=== PATIENT | female | born 1935 | race Two or more races ===

== ENCOUNTER 2023-12-01 16:58 | Emergency (ER) | payer OTHER ==
[~2023-12-01] VITALS: Ht 162.6 cm; Wt 69.9 kg
[2023-12-01] MEDS: IV NORMAL SALINE 500 ML IV ONE (02:00)
[2023-12-01] MEDS ORDERED: SIMVASTATIN (18:50)
[2023-12-01] MEDS ORDERED: LOSARTAN (18:50)
[2023-12-01] MEDS ORDERED: NAMENDA (18:50)
[2023-12-01 19:10] LABS: BASOPHILS # (AUTO) 0.2 K/UL (0.0-0.2); BASOPHILS % (AUTO) 2.5 % (0.0-2.0); EOSINOPHILS # (AUTO) 0.1 K/uL (0.0-0.7); EOSINOPHILS % (AUTO) 1.5 % (0.0-7.0); HEMATOCRIT 39.9 % (31.2-41.9); HEMOGLOBIN 13.1 g/dL (10.9-14.3); LYMPHOCYTES # (AUTO) 0.4 K/uL (0.8-4.8); LYMPHOCYTES % (AUTO) 6.9 % (20.5-51.5); MEAN CORPUSCULAR HEMOGLOBIN 28.7 uug (24.7-32.8); MEAN CORPUSCULAR HGB CONC 33 g/dL (32.3-35.6); MEAN CORPUSCULAR VOLUME 87.5 fL (75.5-95.3); MONOCYTES # (AUTO) 0.3 K/uL (0.1-1.30); MONOCYTES % (AUTO) 4.8 % (0.0-11.0); NEUTROPHILS # (AUTO) 5.3 K/uL (1.8-8.9); NEUTROPHILS % (AUTO) 84.3 % (38.5-71.5); PLATELET COUNT (AUTO) 122 K/uL (179-408); RED BLOOD CELL COUNT(AUTO) 4.56 MIL/uL (3.63-4.92); RED CELL DISTRIBUTION WIDTH 14.2 % (12.3-17.7); WHITE BLOOD COUNT (AUTO) 6.3 K/uL (3.8-11.8)
[2023-12-01 19:32] LABS: DIFFERENTIAL COMMENT 1
[2023-12-01 19:50] LABS: CALCIUM 9.4 mg/dL (8.5-10.1); CARBON DIOXIDE 27 mmol/L (21-32); CHLORIDE 94 mmol/L (98-107); CREATININE 0.9 mg/dL (0.6-1.3); GLUCOSE 104 mg/dL (74-106); POTASSIUM 4.1 mmol/L (3.5-5.1); SODIUM SERUM 127 mmol/L (136-145); UREA NITROGEN, BLOOD 21 mg/dL (7-18)
[2023-12-01 19:55] LABS: ALANINE AMINOTRANSFERASE 23 U/L (14-59); ALBUMIN 3.3 g/dL (3.4-5.0); ALKALINE PHOSPHATASE 129 U/L (50-136); ASPARTATE AMINOTRANSFERASE 21 U/L (15-37); BILIRUBIN,DIRECT 0.1 mg/dL (0.0-0.2); BILIRUBIN,TOTAL 0.4 mg/dL (0.2-1.0); NT-PRO BNP 102 pg/mL (0-125); TOTAL PROTEIN, SERUM 7.6 g/dL (6.4-8.2)
[2023-12-01] MEDS ORDERED: IOHEXOL 350 100 ML INFUS..BTL ONE (22:12)
[2023-12-01] MEDS ORDERED: IV NORMAL SALINE 250 ML IV ONE (22:12)
[2023-12-01] MEDS ORDERED: SWABABLE VALVE TRANSFER SET EA MC ONE (22:12)
[2023-12-01] MEDS: IV NORMAL SALINE 1000 ML BAG IV ONE (23:00)
[2023-12-02 04:35] VITALS: BP 129/89; TEMP 98.2; O2SAT 95
== END 2023-12-02 04:15 | disposition home or self-care (01) ==
LOC: ER 17:00
DX: R55 Syncope and collapse (principal); Z20.822 Contact with and (suspected) exposure to COVID-19
CPT/HCPCS: 36415; 70450; 71045; 71275; 83605; 84484; 85025; 85730; 87040; 93005; A4606; A4663; J7040; Q9967